=== PATIENT | female | born 1975 | race Caucasian/White ===

== ENCOUNTER → 2020-04-30 | Outpatient (CLI) | payer OTHER ==
[~2020-04-30] MED LIST: MULTIVITAMINS PO; OMEPRAZOLE40 MG PO
== END ==
LOC: M.LAB 13:22
PROVIDERS: ATTEND Family Medicine
DX: Z01.812 Encounter for preprocedural laboratory examination (principal); Z20.828 Contact with and (suspected) exposure to other viral communicable diseases

== ENCOUNTER 2020-05-04 05:38 | Observation (INO) | payer OTHER ==
[~2020-05-04] VITALS: Ht 157.5 cm; Wt 77.1 kg
--- NOTE | ~2020-05-04 | OP ---
[facility] [address] [place] [address] OPERATIVE REPORT Name: CADE ALANIZ Room: [address] [place]#: [id number] Admission: 05/04/20 Attend Phys: Javed Mckenzie Discharge: Date of : 77 Report #: [id number] THIS REPORT FOR: cc: Yary Vázquez MD, Allison Louise MD ~ Javed Mckenzie MD DATE OF SERVICE: 05/05/2020 PREOPERATIVE DIAGNOSES: 1. Severe gastroesophageal reflux disease with esophagitis. 2. Recurrent ventral incisional hernial. POSTOPERATIVE DIAGNOSES: 1. Severe gastroesophageal reflux disease with esophagitis. 2. Recurrent ventral incisional hernial. 3. Small hiatal hernia. OPERATIONS: 1. Laparoscopic repair of hiatal hernia with mesh implantation with partial fundoplication. 2. Laparoscopic repair of incarcerated recurrent ventral incisional hernia with mesh. SURGEON: Javed Mckenzie MD ANESTHESIA: General. ESTIMATED BLOOD LOSS: Minimal. SPECIMEN: None. DESCRIPTION OF PROCEDURE: After informed consent was obtained, the patient was brought to the operating room and placed supine. SCDs were placed and working, preoperative antibiotics were administered, general anesthesia was induced. The abdomen was prepped and draped in the usual sterile fashion. A 1 mm incision was made in the left upper quadrant. Veress needle was inserted and pneumoperitoneum was established. A left periumbilical 5 mm trocar was placed under direct vision. Left-sided 8 mm trocar was placed and two right upper quadrant 5 mm ports were placed. An epigastric incision was made and a Tatiana retractor was inserted under direct vision. The patient was placed in the reverse Trendelenburg position. The liver was retracted superiorly and anteriorly, this allowed [place] [address] OPERATIVE REPORT Name: CADE ALANIZ Room: [address] [place]#: [id number] Admission: 05/04/20 Attend Phys: Javed Mckenzie Discharge: Date of : 77 Report #: [id number] The pars flaccida was incised. LigaSure dissection was made up to the right rozina. The phrenoesophageal ligament was incised. The left rzoina was identified. She had a very small hiatal hernia and this was all fully reduced. Full mediastinal dissection was undertaken to reduce the small hiatal hernia. There was a crural defect at that point and therefore, a 2-0 Ethibond suture was used to close the defect with a single suture. Phasix mesh pledgets were placed on each side. These were approximately 1 cm in size on each side. This closed the crural defect nicely without it being too tight. The stomach was then retracted to the patient's right. The short gastric vessels were taken down with the LigaSure device. There was excellent hemostasis and good floppy movement of the fundus. The fundus was then brought posteriorly around the esophagus. The OG tube was removed. Partial fundoplication was undertaken. This was a 270-degree wrap. Two sutures were placed on each side of the esophagus. These were 2-0 Ethibond sutures. The wrap having been fully completed, I directed my attention to the umbilicus. She had incarcerated preperitoneal fat. The defect measured approximately 0.5 cm. Therefore, I inserted a Bard Ventralight mesh. This was an 11 cm mesh trimmed down to about 9 cm. It was tacked to cover the defect widely with approximately 25 absorbable tacks. The ports were removed under direct vision. The liver was placed back into its anatomic position as the Nathansen retractor was removed. The skin was then closed with 4-0 Monocryl. Incisions were dressed with Steri-Strips. COMPLICATIONS: None. DISPOSITION: The patient was taken to recovery in satisfactory condition. By: [id number] Mckenzie MD /isha
[2020-05-04 09:22] LABS: HEMATOCRIT 36.8 % (37.0-47.0); HEMOGLOBIN 12.2 gm/dL (12.0-15.0); MCH 26.5 pg (26.0-34.0); MCHC 33.2 g/dL (28.0-37.0); MCV 79.6 fL (80.0-100.0); MPV 8.2 fl. (7.2-11.1); RBC 4.63 mil/uL (4.20-5.00); RDW-CV 14.9 % (10.5-14.5); WBC 9.3 thou/uL (4.0-11.0)
[2020-05-04 09:31] LABS: CREATININE 0.8 mg/dL (0.6-1.3); POTASSIUM 3.5 mmol/L (3.5-5.1)
[2020-05-04 09:40] LABS: ALBUMIN 3.8 g/dL (3.4-5.0); TOTAL BILIRUBIN 0.3 mg/dL (<0.1-1.0); TOTAL PROTEIN 7.5 g/dL (6.4-8.2)
--- NOTE | 2020-05-04 15:15 | NUR ---
REPORT CALLED TO RIO MARTINEZ. TRANSPORTED PT VIA BED TO ROOM 231. MONITOR APPLIED. PT ORIENTED TO ROOM AND CALL LIGHT. WEARING 3L/NC, NS AT 50 ML/HR INFUSING.
[2020-05-04 17:10] VITALS: BP 105/77
[2020-05-04 20:00] VITALS: BP 95/44
--- NOTE | 2020-05-04 20:31 | NUR ---
Pt arrived to unit around 1710. Pt awake and a&O x4. Pt notes feeling pretty good. Vital signs stable. Pt on 2L for precautionary measures with pain medication. Pt requested pain meds and benedryl for itching. Meds given per JUN. Bed in low position, call light within reach.
[2020-05-05] VITALS (8 sets, daily range): BP systolic 96–133; BP diastolic 50–66
--- NOTE | 2020-05-05 04:57 | NUR ---
PT A&O X 4. BP SOFT. ON 1-2L BY NC. PAIN MANAGED WITH MORPHINE. PT TOLERATING CLEAR LIQUIDS. NO C/O N/V. LAP SITES C/D/I. UP TO BR INDEPENDENTLY. WILL CONTINUE TO MONITOR.
[2020-05-05] MEDS ORDERED: NORCO 10-325 T1 EACH PO (07:13)
--- NOTE | 2020-05-05 10:14 | NUR ---
CM SPOKE TO THE PT TO DISCUSS CM ASSESSMENT. PT A&O, INDEPENDENT WITH ADL'S, ACTIVE AND WORKS OUTSIDE THE HOME. PT USES 0 DME. NO CM D/C PLANNING NEEDS ANTICIPATED. PLAN FOR PT TO D/C HOME TODAY WITH SELF-CARE. CM WILL REMAIN AVAILABLE TO ASSIST AND FOLLOW NEEDED.
--- NOTE | 2020-05-05 13:53 | EKG ---
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 : 1975 Requested By: Alejandro Flor Order Number: [id number] Reading MD: Navid Estrada Measurements Intervals [place] Rate: 88 P: 58 ME: 202 QRS: 2 QRSD: 105 T: 36 QT: 352 QTc: 426 Interpretive Statements Sinus rhythm Borderline prolonged ME interval Borderline low voltage, extremity leads No previous ECG available for comparison Electronically Signed On 05-05-2020 13:53:26 CREDIT COLLECTION SPECIALIST by Navid Estrada [email or web address] <ELECTRONICALLY SIGNED> By: Mookie Estrada MD, [facility] 05/05/20 1353 0 0 Mookie Estrada MD, [facility] /EPI
--- NOTE | 2020-05-05 18:31 | NUR ---
AM ASSESSMENT AND VITAL SIGNS COMPLETED DOCUMENTED. PT WAS SUPPOSED TO DISCHARGE HOME TODAY BUT HER PAIN HAS NOT BEEN WELL CONTROLLED. PT STATES SHE METABOLIZES NARCOTICS VERY QUICKLY AND REQUIRES HIGH DOSES FOR PAIN MANAGEMENT. PT IS NOW TAKING 30 MG OXY IR Q 6 HOURS WITH 4 MG OF MORPHINE IV FOR BREAKTHROUGH PAIN. PT ALSO STATES SHE HASN'T PASSED FLATUS SINCE SURGERY. I ENCOURAGED PT TO AMBULATE IN THE HALLS BUT SHE REFUSED. SURGEON WILL REASSESS IN AM.
--- NOTE | 2020-05-06 04:53 | NUR ---
PT A&O, VSS ON RA. LAP SITES INTACT. PAIN MANAGED WITH MORPHINE AND OXY IR. NO PASSING GAS YET. UP AD ANAYELI. WILL CONTINUE TO MONITOR.
[2020-05-06 08:05] VITALS: BP 114/55
[2020-05-06 16:29] VITALS: BP 113/72
[2020-05-06 16:42] VITALS: BP 99/59
--- NOTE | 2020-05-06 17:45 | NUR ---
PATIENT DISCHARGED TO HOME. DISCHARGE PAPERS REVIEWED AND SIGNED. PRESCRIPTIONS AND INFORMATION SHEETS GIVEN. IV REMOVED. PATIENT DENIES ANY FURTHER NEEDS. PATIENT TAKEN BY WHEELCHAIR TO EXIT. LEFT WITH DAUGHTER.
[2020-05-06 18:03] VITALS: BP 99/59
== END 2020-05-06 17:45 | disposition home or self-care (01) ==
LOC: M.PRE 05:38 → M.TBA 08:35 → M.PRE 12:22 → M.3W 17:08
PROVIDERS: ADMIT Surgery; ATTEND Surgery
DX: K21.00 Gastro-esophageal reflux disease with esophagitis, without bleeding (principal); K43.2 Incisional hernia without obstruction or gangrene; K44.9 Diaphragmatic hernia without obstruction or gangrene; M19.90 Unspecified osteoarthritis, unspecified site; Z79.899 Other long term (current) drug therapy

== ENCOUNTER 2020-05-11 15:16 | Emergency (ER) | payer OTHER ==
[~2020-05-11] VITALS: Ht 157.5 cm; Wt 77.1 kg
[~2020-05-11 15:16] MED LIST changes: +NORCO 10-325 T1 EACH PO
[2020-05-11 15:44] LABS: URINE BILIRUBIN NEGATIVE (Negative); URINE BLOOD NEGATIVE (Negative); URINE CLARITY CLEAR; URINE COLOR YELLOW; URINE GLUCOSE-RANDOM NEGATIVE (Negative); URINE KETONES 1+ (Negative); URINE LEUKOCYTES-REFLEX NEGATIVE (Negative); URINE NITRITE-REFLEX NEGATIVE (Negative); URINE PROTEIN NEGATIVE (Negative); URINE SPECIFIC GRAVITY 1.015 (1.005-1.030); URINE UROBILINOGEN 0.2 E.U./dl (0.2-1.0)
[2020-05-11 15:56] LABS: ABSOLUTE BASOPHILS 0.1 thou/uL (0.0-0.2); ABSOLUTE EOSINOPHILS 0.1 thou/uL (0.0-0.7); ABSOLUTE LYMPHOCYTES 1.7 thou/uL (0.8-5.3); ABSOLUTE MONOCYTES 0.5 thou/uL (0.0-1.2); BASOPHILS 0.9 %; EOSINOPHILS 1.5 %; HEMATOCRIT 36.2 % (37.0-47.0); HEMOGLOBIN 12.1 gm/dL (12.0-15.0); LYMPHOCYTES 20.5 %; MCH 26.6 pg (26.0-34.0); MCHC 33.4 g/dL (28.0-37.0); MCV 79.7 fL (80.0-100.0); MONOCYTES 5.9 %; MPV 7.8 fl. (7.2-11.1); NUCLEATED RBCS 0 /100WBC; PLATELET COUNT* 303 thou/uL (150-400); POLYS 71.2 %; RBC 4.54 mil/uL (4.20-5.00); RDW-CV 14.6 % (10.5-14.5); WBC 8.5 thou/uL (4.0-11.0)
[2020-05-11 16:04] LABS: CALCIUM 8.6 mg/dL (8.5-10.1); CREATININE 0.7 mg/dL (0.6-1.3); POTASSIUM 3.6 mmol/L (3.5-5.1)
[2020-05-11 16:08] LABS: ALBUMIN 3.6 g/dL (3.4-5.0); TOTAL BILIRUBIN 0.2 mg/dL (<0.1-1.0); TOTAL PROTEIN 7.2 g/dL (6.4-8.2)
[2020-05-11] MEDS ORDERED: HYDROCODON-ACE1 EAC7 PO (19:13)
[2020-05-11] MEDS ORDERED: METRONIDAZOLE500 M4 PO (19:13)
[2020-05-11] MEDS ORDERED: CIPRO500 MG PO (19:13)
[2020-05-11 19:41] VITALS: BP 116/80
--- NOTE | 2020-05-12 13:13 | EKG ---
[place] [address] ELECTROCARDIOGRAM REPORT Name: CADE ALANIZ Room: [facility]#: [id number] Admission: 05/11/20 Attend Phys: Discharge: 05/11/20 Date of : 77 Date of Service: 05/11/20 1538 Report #: [id number] THIS REPORT FOR: //name// 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: DASHAWN : 1975 Requested By: Lee Guzman Order Number: [id number] MD: Stevenson Hwang Measurements Intervals [place] Rate: 80 P: 140 MI: 157 QRS: -24 QRSD: 95 T: 121 QT: 392 QTc: 453 Interpretive Statements Sinus rhythm Probable left atrial enlargement Borderline left axis deviation Low voltage, precordial leads Compared to ECG 05/05/2020 09:21:59 Significant changes not noted Electronically Signed On 05-12-2020 13:13:03 PROJECT DIRECTOR by Stevenson Hwang [email or web address] <ELECTRONICALLY SIGNED> By: Stevenson Hwang MD, FACC 05/12/20 1313 1538 1538 Stevenson Hwang MD, [facility] /EPI
== END 2020-05-11 19:41 | disposition home or self-care (01) ==
LOC: M.ERS 15:16
PROVIDERS: Physician Assistant
DX: R10.11 Right upper quadrant pain (principal); K21.9 Gastro-esophageal reflux disease without esophagitis; Z90.49 Acquired absence of other specified parts of digestive tract; Z88.1 Allergy status to other antibiotic agents; Z88.2 Allergy status to sulfonamides; Z88.8 Allergy status to other drugs, medicaments and biological substances; Z91.040 Latex allergy status; Z20.828 Contact with and (suspected) exposure to other viral communicable diseases